=== PATIENT | female | born 1965 ===

== ENCOUNTER → 2022-05-17 13:31 | Outpatient (BNVA) | payer OTHER, SELFPAY | PROVIDERS: PCP Internal Medicine; Visit Provider Psychiatry & Neurology Neurology | DX: R20.0 Anesthesia of skin (principal) ==

== ENCOUNTER 2022-05-31 18:58 | Outpatient (REF) | payer OTHER, SELFPAY ==
--- NOTE | ~2022-05-31 | MR_ITS ---
EXAMINATION: MR FEMUR WITHOUT CONTRAST, LEFT CLINICAL INFORMATION: Left thigh pain, burning, numbness, lump/mass. Pain and swelling. COMPARISON: None TECHNIQUE: Multisequence MR imaging of the left femur was obtained without contrast on a high field strength scanner. FINDINGS: BONE: No stress reaction, fracture, or avascular necrosis. No abnormal marrow signal. No evidence of acute osseous injury. No concerning lytic or blastic osseous lesion. MUSCLES/TENDONS: Mildly increased T2 signal adjacent to the gluteus medius and gluteus minimus tendons on the left, consistent with mild tendinosis. No measurable tendon tear or tendon retraction. SOFT TISSUES: Minimal subcutaneous/soft tissue stranding along the lateral aspect of the thigh adjacent to the fascia without associated fluid collection or seroma formation. No soft tissue mass or fluid collection. Partially visualized small left knee joint effusion and Temple's cyst. Probable uterine fibroid. The visualized intrapelvic structures are otherwise unremarkable. MR/MR femur LT wo con IMPRESSION: Minimal subcutaneous/soft tissue stranding along the lateral aspect of the thigh adjacent to the fascia without associated fluid collection or seroma formation. No soft tissue mass or fluid collection. Mild left gluteus medius and gluteus minimus tendinosis without a measurable tendon tear or tendon retraction. No stress reaction, fracture, or avascular necrosis. Partially visualized small left knee joint effusion and Temple's cyst. Probable uterine fibroid.
== END 2022-05-31 18:59 | disposition home or self-care (01) ==
LOC: HO.MRI 18:58
PROVIDERS: PCP Internal Medicine; Visit Provider Psychiatry & Neurology Neurology
DX: M79.652 Pain in left thigh (principal); R20.3 Hyperesthesia
CPT/HCPCS: 73718

== ENCOUNTER 2022-08-08 12:52 | Outpatient (REF) | payer OTHER, SELFPAY ==
--- NOTE | 2022-08-08 08:45 | EMG_ITS ---
Please see scanned EMG / Nerve Conduction Report. MTDD
== END 2022-08-08 12:53 | disposition home or self-care (01) ==
LOC: HO.NEURO 12:52
PROVIDERS: PCP Internal Medicine; Visit Provider Psychiatry & Neurology Neurology
DX: R20.0 Anesthesia of skin (principal); R20.2 Paresthesia of skin; M79.652 Pain in left thigh
CPT/HCPCS: 95885; 95909

== ENCOUNTER → 2022-08-29 08:41 | Outpatient (BNVA) | payer OTHER, SELFPAY | PROVIDERS: PCP Internal Medicine; Visit Provider Psychiatry & Neurology Neurology | DX: M79.652 Pain in left thigh (principal); R20.0 Anesthesia of skin; R20.2 Paresthesia of skin ==

== ENCOUNTER → 2022-09-24 08:09 | Outpatient (BNVA) | payer OTHER, SELFPAY | PROVIDERS: PCP Internal Medicine; Visit Provider Internal Medicine ==

== ENCOUNTER 2022-10-09 08:30 | Outpatient (REF) | payer OTHER, SELFPAY ==
--- NOTE | ~2022-10-09 | US_ITS ---
EXAMINATION: US VENOUS BILATERAL LOWER EXTREMITIES (REFLUX EXAM) CLINICAL INDICATION: Thigh pain COMPARISON: None TECHNIQUE: Color flow triplex imaging and compression Doppler was performed to evaluate both the deep and the superficial systems bilaterally. To evaluate the superficial system, the examination was performed in the upright position. Color-flow Doppler ultrasound and compression ultrasound were utilized. In addition, maneuvers were utilized to demonstrate reflux. FINDINGS: 1. DEEP VENOUS ULTRASOUND OF THE RIGHT LOWER EXTREMITY: Respiratory variation, normal compression and augmented flow are noted in the right common femoral vein as well as the right popliteal vein. There is no evidence of deep venous thrombosis at these locations. There is 0.7 cm of reflux in the popliteal vein. There is no evidence of a Temple's cyst. 2. SUPERFICIAL ULTRASOUND WITH DOPPLER OF RIGHT LOWER EXTREMITY: The right great saphenous vein at the saphenofemoral junction measures 6 mm, at the proximal thigh 8 mm, at the mid thigh 4 mm, above the knee 4 mm, at the knee 3 mm, [id number] 2 mm, midcalf 2 mm and at the ankle measures 2 mm. There is no reflux demonstrated in the right great saphenous vein. Duplicated Right Great Saphenous Vein: There is an accessory medial saphenous measuring 3 mm and lateral saphenous measuring 5 mm which do not reflux. The right small saphenous vein measures 4 mm and shows no reflux. Accessory Vein of Giacomini: None Incompetent Perforators: None Varices Present: A 3 mm mid calf varix is present. 3. DEEP VENOUS ULTRASOUND OF THE LEFT LOWER EXTREMITY: Respiratory variation, normal compression and augmented flow are noted in the left common femoral vein as well as the left popliteal vein and there is no evidence of deep venous thrombosis at these locations. There is 0.7 cm seconds of reflux in the left popliteal vein but not the common femoral vein. There is a 6.0 x 1.5 x 5.1 cm Temple's cyst present.. 4. SUPERFICIAL ULTRASOUND WITH DOPPLER OF LEFT LOWER EXTREMITY: Left great saphenous vein at the saphenofemoral junction measures 7 mm, at the proximal thigh 8 mm, at the mid thigh 4 mm, above the knee 5 mm, at the knee 3 mm, iugry-upb-egom 2 mm, midcalf 2 mm and at the ankle measures 2 mm. There is no reflux demonstrated in the left great saphenous vein. Duplicated Left Great Saphenous Vein: There is a 3 mm accessory medial saphenous vein along with a 4 mm accessory lateral saphenous vein. These do not reflux. The left small saphenous vein measures 3 mm and shows no reflux. Accessory Vein of Giacomini: None Incompetent Perforators: None. Varices Present: None US/US venous duplex LE BI IMPRESSION: 1. Superficial venous systems show no evidence of reflux. 2. Reflux present in the deep system only in the left popliteal for 0.7 seconds.
== END 2022-10-09 08:31 | disposition home or self-care (01) ==
LOC: HO.US 08:30
PROVIDERS: PCP Internal Medicine; Visit Provider Internal Medicine
DX: M79.652 Pain in left thigh (principal)
CPT/HCPCS: 93970

== ENCOUNTER 2022-11-02 09:15 | Outpatient (AMB) | payer OTHER, SELFPAY ==
--- NOTE | 2022-11-02 09:19 | MHC.OFFVIS ---
Intake Vital Signs 11/02/22 09:20 Height 5 ft 1 in Weight 266 lb BMI 50.3 BP 139/78 Blood Pressure Location Lt brachial Position Sitting Respiration 14 Pulse 86 Pulse Source Pulse Oximeter Pulse Oximetry (%) 97 Oxygen Delivery Method Room Air Intake Visit Reasons: FOLLOW UP/ULTRASOUND RESULTS Allergies No Known Allergies Allergy (Verified 11/02/22 09:22) Medication List - Last Reconciled 11/02/22 by Ruby Prince LPN albuterol sulfate 90 mcg/actuation 2 puffs inhalation Q2-4H PRN fexofenadine (Emma Allergy) 60 mg PO BID gabapentin 100 mg PO TID losartan 25 mg PO DAILY mometasone-formoterol 200-5 mcg/actuation (Dulera) 2 puffs inhalation BID omalizumab (Xolair) 0 mg subcut pantoprazole 20 mg PO DAILY rosuvastatin (Crestor) 20 mg PO DAILY tirzepatide (Mounjaro) mg subcut HPI FOLLOW UP/ULTRASOUND RESULTS HPI Details 57-year-old female presenting today for a follow-up discussion of US results. The patient reports pain and muscle tightness in the left lateral thigh. Her pain is intermittent in nature and worsens with prolonged standing positions. This is associated with swelling in her ankles, especially the left. She recently bought compression stockings. [facility] Medical History (Updated 11/02/22 @ 10:27 by Armand Givens MD) Meralgia paresthetica of left side Numbness and tingling of left leg Tendinosis Surgical History History of carpal tunnel repair Hx of cholecystectomy Family History Father Diabetes Heart disease Arthritis Kidney disease Mother Diabetes Cirrhosis Sister Diabetes Heart disease HTN (hypertension) Social History Alcohol intake: current Patient Tobacco Use Status: Never used Tobacco Review of Systems Const All systems reviewed & are unremarkable except as noted in HPI and below Physical Exam Vital Signs: Last Vital Signs Pulse 86 11/02/22 09:20 Resp 14 11/02/22 09:20 BP 139/78 11/02/22 09:20 Pulse Ox 97 11/02/22 09:20 Oxygen Delivery Method Room Air 11/02/22 09:20 BMI result Body Mass Index 50.3 General: Appears afebrile. Alert and oriented. Mood and affect appropriate. Follows and participates in conversation appropriately. Respiratory effort is unlabored. Able to transition from sit to stand unassisted. Ambulates with bilaterally normal heel strike and toe off. Point tenderness to palpation in the left lateral distal thigh. No tenderness to palpation posterior to the left knee. No palpable Temple cyst. Results Reviewed Results Reviewed: 10/09/22: US VENOUS BILATERAL LOWER EXTREMITIES (REFLUX EXAM) FINDINGS: 1. DEEP VENOUS ULTRASOUND OF THE RIGHT LOWER EXTREMITY: Respiratory variation, normal compression and augmented flow are noted in the right common femoral vein as well as the right popliteal vein. There is no evidence of deep venous thrombosis at these locations. There is 0.7 cm of reflux in the popliteal vein. There is no evidence of a Temple's cyst. 2. SUPERFICIAL ULTRASOUND WITH DOPPLER OF RIGHT LOWER EXTREMITY: The right great saphenous vein at the saphenofemoral junction measures 6 mm, at the proximal thigh 8 mm, at the mid thigh 4 mm, above the knee 4 mm, at the knee 3 mm, lcwum-xzo-wfzm 2 mm, midcalf 2 mm and at the ankle measures 2 mm. There is no reflux demonstrated in the right great saphenous vein. Duplicated Right Great Saphenous Vein: There is an accessory medial saphenous measuring 3 mm and lateral saphenous measuring 5 mm which do not reflux. The right small saphenous vein measures 4 mm and shows no reflux. Accessory Vein of Giacomini: None Incompetent Perforators: None Varices Present: A 3 mm mid calf varix is present. 3. DEEP VENOUS ULTRASOUND OF THE LEFT LOWER EXTREMITY: Respiratory variation, normal compression and augmented flow are noted in the left common femoral vein as well as the left popliteal vein and there is no evidence of deep venous thrombosis at these locations. There is 0.7 cm seconds of reflux in the left popliteal vein but not the common femoral vein. There is a 6.0 x 1.5 x 5.1 cm Temple's cyst present.. 4. SUPERFICIAL ULTRASOUND WITH DOPPLER OF LEFT LOWER EXTREMITY: Left great saphenous vein at the saphenofemoral junction measures 7 mm, at the proximal thigh 8 mm, at the mid thigh 4 mm, above the knee 5 mm, at the knee 3 mm, cldyr-wol-bkzo 2 mm, midcalf 2 mm and at the ankle measures 2 mm. There is no reflux demonstrated in the left great saphenous vein. Duplicated Left Great Saphenous Vein: There is a 3 mm accessory medial saphenous vein along with a 4 mm accessory lateral saphenous vein. These do not reflux. The left small saphenous vein measures 3 mm and shows no reflux. Accessory Vein of Giacomini: None Incompetent Perforators: None. Varices Present: None IMPRESSION: 1. Superficial venous systems show no evidence of reflux. 2. Reflux present in the deep system only in the left popliteal for 0.7 seconds. Assessment & Plan Assessment & Plan (1) Tendinosis: Code(s): M67.80 - Other specified disorders of synovium and tendon, unspecified site (2) Left thigh pain: Code(s): M79.652 - Pain in left thigh (3) Venous reflux: Code(s): I87.2 - Venous insufficiency (chronic) (peripheral) Plan 1. Will schedule her for left lateral thigh trigger point/ local anesthetic/ hydro dissection of the facial planes. Discussed the risks and benefits of the procedure with the patient in detail. All questions were answered. The patient is on board with the plan. 2. For the time being, I encouraged her to continue using compression stockings. 3. If the diagnostic injection is not helpful, we'll consider referral to vascular surgery for possible RFA therapy of the deep left popliteal vein. 4. The patient will follow up on 11/12/22. Justification for interventional therapy: ? Patient with average pain > 6/10. ? Patient has exhausted conservative therapy. Scribed for Dr. Givens by Christo Ibrahim, medical assistant cardiology, on 11/02/2022. I, Dr. Givens, have personally reviewed and agree with the information entered by the scribe. Coding Level of Care Code Est Pt Level 4 (87853) Diagnoses Tendinosis M67.80 Left thigh pain M79.652 Venous reflux I87.2
[2022-11-02 09:20] VITALS: BP 139/78; PULSE 86; RESP 14; O2SAT 97; BMI 50.3
== END 2022-11-02 09:48 | disposition home or self-care (01) ==
PROVIDERS: PCP Internal Medicine; Visit Provider Internal Medicine
DX: M67.80 Other specified disorders of synovium and tendon, unspecified site (principal); M79.652 Pain in left thigh; I87.2 Venous insufficiency (chronic) (peripheral)
CPT/HCPCS: 99214

== ENCOUNTER → 2022-11-02 09:15 | Outpatient (BNVA) | payer OTHER, SELFPAY | PROVIDERS: PCP Internal Medicine; Visit Provider Internal Medicine ==

== ENCOUNTER 2022-11-12 11:20 | Outpatient (AMB) | payer OTHER, SELFPAY ==
--- NOTE | 2022-11-12 11:35 | MHC.OFFVIS ---
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 Patient presents for scheduled procedure. Denies any recent cough, cold, infection, fever or other significant changes in medical history since last office visit. [facility] Medical History (Updated 11/15/22 @ 12:40 by Armand Givens MD) Meralgia paresthetica of left side Numbness and tingling of left leg Tendinosis Surgical History History of carpal tunnel repair Hx of cholecystectomy Family History Father Diabetes Heart disease Arthritis Kidney disease Mother Diabetes Cirrhosis Sister Diabetes Heart disease HTN (hypertension) Social History Alcohol intake: current Patient Tobacco Use Status: Never used Tobacco Review of Systems Const All systems reviewed & are unremarkable except as noted in HPI and below Physical Exam Vital Signs: Last Vital Signs Pulse 77 11/12/22 12:02 BP 160/80 H 11/12/22 12:02 Pulse Ox 97 11/12/22 12:02 Oxygen Delivery Method Room Air 11/12/22 12:02 BMI result Body Mass Index 50.3 General: Appears afebrile. Alert and oriented. Mood and affect appropriate. Follows and participates in conversation appropriately. Respiratory effort is unlabored. Able to transition from sit to stand unassisted. Ambulates with bilaterally normal heel strike and toe off. Office Procedures Injection Trigger Point Multi Pre-procedure diagnosis: Myofascial pain Post-procedure diagnosis: Myofascial pain Site and number of trigger points: Left vastus lateralis, intermedius. Solution: Total volume administered 20 ml (10 ml lidocaine 1% + 10 ml bupivacaine 0.25%). The procedure, its benefits, and its risks were explained to the patient and all questions were answered. Prior to the start of the procedure, a ?time out? was performed to confirm correct patient, procedure, and laterality. Trigger points were identified by manual palpation and marked. The skin was cleaned with Chloraprep. A 21 gauge 80 mm echo stim needle was used. The needle was advanced in an in plane approach the fascia between the vastus lateralis and intermedius muscles. The fascial layer was hydro dissected with the local anesthetic solution mentioned above. The patient tolerated the procedure well, without complication. The patient denied any numbness, paresthesias, or weakness. Post-procedure vitals were recorded as part of the nursing discharge note in electronic medical record. Following a period of observation, the patient was discharged in stable condition with written discharge instructions. Trigger Point Multiple: 17924- Trigger point injection =/>3 Results Reviewed Results Reviewed: No imaging is available for review. Assessment & Plan Assessment & Plan (1) Numbness and tingling of left leg: Code(s): R20.0 - Anesthesia of skin; R20.2 - Paresthesia of skin (2) Myofascial pain: Code(s): M79.18 - Myalgia, other site Plan Patient is status post trigger point injections. Patient tolerated procedure well and was discharged home in stable condition with discharge instructions. All questions were answered. We will follow-up in two weeks via telephone or in clinic to assess response to therapy. A follow-up appointment was made during today's visit. Depending on response to this injection, we may repeat this procedure as needed. If there is no response to this intervention, we will consider a spinal origin of her apparently neurogenic claudication related symptoms of leg numbness with activity that resolves with rest. Scribed for Dr. Givens by Christo Ibrahim, medical customer service representative, on 11/12/2022. I, Dr. Givens, have personally reviewed and agree with the information entered by the scribe. Coding Level of Care Code Est Pt Level 3 (31123) Diagnoses Numbness and tingling of left leg R20.0; R20.2 Myofascial pain M79.18 CPT Codes Details - Trigger Point Multiple: 12755- Trigger point injection =/>3 ([id number])
[2022-11-12 12:02] VITALS: BP 160/80; PULSE 77; O2SAT 97; BMI 50.3
== END 2022-11-12 12:00 | disposition home or self-care (01) ==
PROVIDERS: PCP Internal Medicine; Visit Provider Internal Medicine
DX: M79.18 Myalgia, other site (principal)
CPT/HCPCS: 20553

== ENCOUNTER → 2022-11-12 11:20 | Outpatient (BNVA) | payer OTHER, SELFPAY | PROVIDERS: PCP Internal Medicine; Visit Provider Internal Medicine | DX: M79.18 Myalgia, other site (principal); G57.12 Meralgia paresthetica, left lower limb; R20.0 Anesthesia of skin; R20.2 Paresthesia of skin | CPT/HCPCS: 20553 ==

== ENCOUNTER 2022-12-13 10:36 | Outpatient (AMB) | payer OTHER, SELFPAY ==
[2022-12-13 10:44] VITALS: BP 128/82; PULSE 88; O2SAT 95; BMI 49.3
--- NOTE | 2022-12-13 10:44 | A.OFFVIS_ITS ---
Intake Vital Signs 12/13/22 10:44 Height 5 ft 1 in Weight 261 lb 2 oz BMI 49.3 BP 128/82 Blood Pressure Location Rt brachial Position Sitting Pulse 88 Pulse Source Pulse Oximeter Pulse Oximetry (%) 95 Oxygen Delivery Method Room Air Intake Visit Reasons: 3m f/u L. 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 she was seen by at pain management- had a trigger point injection. she responded initially but now she has pain but less intense. He has ordered another MRI LS spine. EMg was c/w left meralgia paresthetica she used to take gabapentin 300mg qhs but now her pain is mostly during daytime so she stopped. she describes the pain as episodic , more when she is in a standing or sitting position for a long time. At work she has a big chair which helps . she does not get as many episodes. she has episodes everyday and resting or changing position helps. she gained 25-30 lbs and works at a desk all day.SHe has sleep apnea- following up with - waiting for CPAP. [facility] Medical History Meralgia paresthetica of left side Numbness and tingling of left leg Tendinosis Surgical History History of carpal tunnel repair Hx of cholecystectomy Family History Father Diabetes Heart disease Arthritis Kidney disease Mother Diabetes Cirrhosis Sister Diabetes Heart disease HTN (hypertension) Social History Alcohol intake: current Alcohol intake frequency: holidays/special occasions only Patient Tobacco Use Status: Never used Tobacco Use of substances other than those prescribed or required for medical reasons: No Physical Exam Vital Signs: Last Vital Signs Pulse 88 12/13/22 10:44 BP 128/82 12/13/22 10:44 Pulse Ox 95 12/13/22 10:44 Oxygen Delivery Method Room Air 12/13/22 10:44 BMI result Body Mass Index 49.3 Const General: cooperative Nutritional Appearance: obese morbidly obese Orientation/consciousness: patient oriented x3 Limitations: physical limitations HEENT Head: Yes normal to inspection and Yes normocephalic Eyes Pupils: Equal, round and reactive pupils present Neuro General: patient oriented x3, tone normal and moves all extremities Cranial nerves: Yes Facial sensation intact/muscles of mastication intact, Yes Equal, round and reactive pupils present, Yes Bilaterally intact EOM present, Yes Nystagmus not present, Yes Normal facial strength present, Yes Midline tongue present and Yes Symmetric palate elevation present Cognition (Neuro): normal cognition Gait exam (Neuro): Normal gait present Motor exam (neuro): 5/5 motor strength present throughout Deep tendon reflexes (DTR's): Right triceps reflex intensity grade: 1+, Left triceps reflex intensity grade: 1+, Rt Biceps (C5, C6): 1+, Left biceps reflex intensity grade: 1+, Right brachioradialis reflex intensity grade: 1+, Left brachioradialis reflex intensity grade: 1+, Right patellar reflex intensity grade: 1+ and Left patellar reflex intensity grade: 1+ Coordination: [id number] test normal Extrem Other: firm tender nodule in left lateral mid thigh - tender to touch Assessment & Plan Assessment & Plan (1) Left thigh pain: Code(s): M79.652 - Pain in left thigh (2) Meralgia paresthetica of left side: Code(s): G57.12 - Meralgia paresthetica, left lower limb Plan F/u Dr Givens Continue gabapentin 300mg as needed Coding Level of Care Code Est Pt Level 4 (88056) Diagnoses Left thigh pain M79.652 Meralgia paresthetica of left side G57.12
== END 2022-12-13 11:04 | disposition home or self-care (01) ==
PROVIDERS: Visit Provider Psychiatry & Neurology Neurology
DX: M79.652 Pain in left thigh (principal); G57.12 Meralgia paresthetica, left lower limb
CPT/HCPCS: 99214

== ENCOUNTER → 2022-12-13 10:36 | Outpatient (BNVA) | payer OTHER, SELFPAY | PROVIDERS: Visit Provider Psychiatry & Neurology Neurology | DX: M79.652 Pain in left thigh (principal); R20.0 Anesthesia of skin; R20.2 Paresthesia of skin; G57.12 Meralgia paresthetica, left lower limb; M67.80 Other specified disorders of synovium and tendon, unspecified site ==

== ENCOUNTER 2023-01-07 09:34 | Outpatient (AMB) | payer OTHER, SELFPAY ==
[2023-01-07 09:44] VITALS: BP 129/79; PULSE 87; RESP 14; O2SAT 96; BMI 49.9
--- NOTE | 2023-01-07 09:44 | A.OFFVIS_ITS ---
Intake Vital Signs 01/07/23 09:44 Height 5 ft 1 in Weight 264 lb BMI 49.9 BP 129/79 Blood Pressure Location Lt brachial Position Sitting Respiration 14 Pulse 87 Pulse Source Pulse Oximeter Pulse Oximetry (%) 96 Oxygen Delivery Method Room Air Intake Visit Reasons: Increasing Pain s/p left TPI in October Allergies No Known Allergies Allergy (Verified 01/07/23 09:45) Medication List - Last Reconciled 01/07/23 by Ruby Prince LPN albuterol sulfate 90 mcg/actuation 2 puffs inhalation Q2-4H PRN atorvastatin 20 mg PO DAILY empagliflozin (Jardiance) 10 mg PO DAILY fexofenadine (Emma Allergy) 60 mg PO BID gabapentin 100 mg PO TID PRN insulin glargine U-300 conc (Toujeo SoloStar U-300 Insulin) units subcut losartan 25 mg PO DAILY mometasone-formoterol 200-5 mcg/actuation (Dulera) 2 puffs inhalation DAILY omalizumab (Xolair) 0 mg subcut pantoprazole 40 mg PO DAILY rosuvastatin (Crestor) 20 mg PO DAILY semaglutide (Ozempic) mg subcut HPI Increasing Pain s/p left TPI in October HPI Details 57-year-old female who presents today to the office for a follow-up of increasing pain status post left thigh TPI. The patient reports 90% relief following the procedure for three weeks. She denies any numbness or paresthesia. She states that her pain started coming back after three weeks, but it has improved compared to pain present before procedure. She is interested in repeating the injection. Past procedure: 11/12/22: Trigger point injections: 90% relief for 3 weeks. [facility] Medical History Meralgia paresthetica of left side Numbness and tingling of left leg Tendinosis Surgical History History of carpal tunnel repair Hx of cholecystectomy Family History Father Diabetes Heart disease Arthritis Kidney disease Mother Diabetes Cirrhosis Sister Diabetes Heart disease HTN (hypertension) Social History Alcohol intake: current Alcohol intake frequency: holidays/special occasions only Patient Tobacco Use Status: Never used Tobacco Review of Systems Const All systems reviewed & are unremarkable except as noted in HPI and below Physical Exam Vital Signs: Last Vital Signs Pulse 87 01/07/23 09:44 Resp 14 01/07/23 09:44 BP 129/79 01/07/23 09:44 Pulse Ox 96 01/07/23 09:44 Oxygen Delivery Method Room Air 01/07/23 09:44 BMI result Body Mass Index 49.9 General: Appears afebrile. Alert and oriented. Mood and affect appropriate. Follows and participates in conversation appropriately. Respiratory effort is unlabored. Able to transition from sit to stand unassisted. Ambulates with bilaterally normal heel strike and toe off. Results Reviewed Results Reviewed: No imaging is available for review. Assessment & Plan Assessment & Plan (1) Myofascial pain: Code(s): M79.18 - Myalgia, other site (2) Tendinosis: Code(s): M67.80 - Other specified disorders of synovium and tendon, unspecified site (3) Left thigh pain: Code(s): M79.652 - Pain in left thigh Plan Will schedule her for left lateral thigh trigger point / hydro dissection of the facial planes once again under ultrasound guidance. This time we will plan on using low-dose of corticosteroid. Discussed the risks and benefits of the procedure with the patient in detail. All questions were answered. The patient is on board with the plan. Justification for interventional therapy: ? Patient with average pain > 6/10 ? Patient has exhausted conservative therapy ? Diagnostic injection provided 90% relief for [address] Givens by Christo Ibrahim, certified court/medical interpreter, on 01/07/2023. I, Dr. Givens, have personally reviewed and agree with the information entered by the scribe. Coding Level of Care Code Est Pt Level 3 (55605) Diagnoses Myofascial pain M79.18 Tendinosis M67.80 Left thigh pain M79.652
== END 2023-01-07 09:57 | disposition home or self-care (01) ==
PROVIDERS: PCP Internal Medicine; Visit Provider Internal Medicine
DX: M79.652 Pain in left thigh (principal); M79.18 Myalgia, other site; M67.80 Other specified disorders of synovium and tendon, unspecified site
CPT/HCPCS: 99214

== ENCOUNTER → 2023-01-07 09:34 | Outpatient (BNVA) | payer OTHER, SELFPAY | PROVIDERS: PCP Internal Medicine; Visit Provider Internal Medicine ==

== ENCOUNTER 2023-01-28 15:51 | Outpatient (AMB) | payer OTHER, SELFPAY ==
[2023-01-28 15:56] VITALS: BP 143/74; PULSE 85; RESP 14; O2SAT 97; BMI 49.7
--- NOTE | 2023-01-28 15:56 | MHC.OFFVIS ---
Intake Vital Signs 01/28/23 15:56 Height 5 ft 1 in Weight 263 lb BMI 49.7 BP 143/74 H Blood Pressure Location Lt radial Position Sitting Respiration 14 Pulse 85 Pulse Source Pulse Oximeter Pulse Oximetry (%) 97 Oxygen Delivery Method Room Air Intake Visit Reasons: Left lat thigh TPI/hydrodissection facial planes Allergies No Known Allergies Allergy (Verified 01/28/23 15:58) Medication List - Last Reconciled 01/28/23 by Ruby Prince LPN albuterol sulfate 90 mcg/actuation 2 puffs inhalation Q2-4H PRN atorvastatin 20 mg PO DAILY empagliflozin (Jardiance) 10 mg PO DAILY fexofenadine (Emma Allergy) 60 mg PO BID gabapentin 100 mg PO TID PRN insulin glargine U-300 conc (Toujeo SoloStar U-300 Insulin) units subcut losartan 25 mg PO DAILY mometasone-formoterol 200-5 mcg/actuation (Dulera) 2 puffs inhalation DAILY omalizumab (Xolair) 0 mg subcut pantoprazole 40 mg PO DAILY rosuvastatin (Crestor) 20 mg PO DAILY semaglutide (Ozempic) mg subcut HPI Left lat thigh TPI/hydrodissection facial planes HPI Details 57-year-old female who presents today to the office for a left lateral thigh TPI/hydro-dissection facial planes. Denies any recent cough, cold, infection, fever or other significant changes in medical history since last office visit. Past procedure: 11/12/22: Trigger point injections: 90% relief for 3 weeks. [facility] Medical History Meralgia paresthetica of left side Numbness and tingling of left leg Tendinosis Surgical History History of carpal tunnel repair Hx of cholecystectomy Family History Father Diabetes Heart disease Arthritis Kidney disease Mother Diabetes Cirrhosis Sister Diabetes Heart disease HTN (hypertension) Social History Alcohol intake: current Alcohol intake frequency: holidays/special occasions only Patient Tobacco Use Status: Never used Tobacco Review of Systems Const All systems reviewed & are unremarkable except as noted in HPI and below Physical Exam Vital Signs: Last Vital Signs Pulse 85 01/28/23 15:56 Resp 14 01/28/23 15:56 BP 143/74 H 01/28/23 15:56 Pulse Ox 97 01/28/23 15:56 Oxygen Delivery Method Room Air 01/28/23 15:56 BMI result Body Mass Index 49.7 General: Appears afebrile. Alert and oriented. Mood and affect appropriate. Follows and participates in conversation appropriately. Respiratory effort is unlabored. Able to transition from sit to stand unassisted. Ambulates with bilaterally normal heel strike and toe off. Office Procedures Injection Trigger Point Multi Pre-procedure diagnosis: Myofascial pain Post-procedure diagnosis: Myofascial pain Site and number of trigger points: Left vastus lateralis, intermedius. Solution: Total volume administered 20 ml (10 ml lidocaine 1% + 10 ml bupivacaine 0.25%). The procedure, its benefits, and its risks were explained to the patient and all questions were answered. Prior to the start of the procedure, a ?time out? was performed to confirm correct patient, procedure, and laterality. Trigger points were identified by manual palpation and marked. The skin was cleaned with Chloraprep. A 21 gauge 80 mm echo stim needle was used. The needle was advanced in an in plane approach the fascia between the vastus lateralis and intermedius muscles. A hyperechoic structure was noted that was tender upon pressure application with the probe. The aforementioned mix was infiltrated around this hyperechoic, tender focus. The fascial layer was then hydro dissected with the local anesthetic solution mentioned above. The patient tolerated the procedure well, without complication. The patient denied any numbness, paresthesias, or weakness. Post-procedure vitals were recorded as part of the nursing discharge note in electronic medical record. Following a period of observation, the patient was discharged in stable condition with written discharge instructions. Trigger Point Multiple: 40453- Trigger point injection =/>3 Results Reviewed Results Reviewed: No imaging is available for review. Assessment & Plan Assessment & Plan (1) Numbness and tingling of left leg: Code(s): R20.0 - Anesthesia of skin; R20.2 - Paresthesia of skin (2) Myofascial pain: Code(s): M79.18 - Myalgia, other site Plan Patient is status post left trigger point injection. Patient tolerated procedure well and was discharged home in stable condition with discharge instructions. All questions were answered. We will follow-up in two weeks via telephone or in clinic to assess response to therapy. A follow-up appointment was made during today's visit. Scribed for Dr. Givens by hCristo Ibrahim, director of medical staff services, on 01/28/2023. I, Dr. Givens, have personally reviewed and agree with the information entered by the scribe. Coding Level of Care Code Procedure Only Diagnoses Numbness and tingling of left leg R20.0; R20.2 Myofascial pain M79.18 CPT Codes Details - Trigger Point Multiple: 03226- Trigger point injection =/>3 ([id number])
== END 2023-01-28 16:35 | disposition home or self-care (01) ==
PROVIDERS: PCP Internal Medicine; Visit Provider Internal Medicine
DX: M79.18 Myalgia, other site (principal)
CPT/HCPCS: 20553

== ENCOUNTER → 2023-01-28 15:51 | Outpatient (BNVA) | payer OTHER, SELFPAY | PROVIDERS: PCP Internal Medicine; Visit Provider Internal Medicine | DX: M79.18 Myalgia, other site (principal); R20.0 Anesthesia of skin; R20.2 Paresthesia of skin | CPT/HCPCS: 20553; J3301 ==

== ENCOUNTER 2023-09-25 08:24 | Outpatient (AMB) | payer OTHER, SELFPAY ==
[2023-09-25 08:34] VITALS: BP 130/71; PULSE 90; RESP 14; O2SAT 96; BMI 48.9
--- NOTE | 2023-09-25 08:34 | MHC.OFFVIS ---
Vital Signs 09/25/23 08:34 Height 5 ft 1 in Weight 259 lb BMI 48.9 BP 130/71 Blood Pressure Location Lt radial Position Sitting Respiration 14 Pulse 90 Pulse Source Pulse Oximeter Pulse Oximetry (%) 96 Oxygen Delivery Method Room Air Intake Visit Reasons: left leg pain Allergies No Known Allergies Allergy (Verified 09/25/23 08:35) Medication List - Last Reconciled 09/25/23 by Ruby Prince LPN albuterol sulfate 90 mcg/actuation 2 puffs inhalation Q2-4H PRN atorvastatin 20 mg PO DAILY dulaglutide (Trulicity) mg subcut empagliflozin (Jardiance) 10 mg PO DAILY fexofenadine (Emma Allergy) 60 mg PO BID gabapentin 100 mg PO TID PRN insulin glargine U-300 conc (Toujeo SoloStar U-300 Insulin) units subcut losartan 25 mg PO DAILY mometasone-formoterol 200-5 mcg/actuation (Dulera) 2 puffs inhalation DAILY omalizumab (Xolair) 0 mg subcut pantoprazole 40 mg PO DAILY rosuvastatin (Crestor) 20 mg PO DAILY HPI HPI left leg pain: Details: 58-year-old female who presents to the office for evaluation of left leg pain. She complains of having pain and muscle tightness in the left lateral thigh. She states the pain in intermittent and it will worsen with prolonged standing positions. She also noted to have swelling in the left ankle, for which she is wearing compression stockings. She previously underwent a nerve conduction study which was unremarkable. Past procedure: 01/28/23: Left lateral thigh trigger point injection/hydrodissection facial planes: 70-80% relief for several months 11/12/22: Trigger point injections: 90% relief for 3 weeks [facility] Medical History Meralgia paresthetica of left side Numbness and tingling of left leg Tendinosis Surgical History History of carpal tunnel repair Hx of cholecystectomy Family History Father Diabetes Heart disease Arthritis Kidney disease Mother Diabetes Cirrhosis Sister Diabetes Heart disease HTN (hypertension) Social History Alcohol intake: current Alcohol intake frequency: holidays/special occasions only Patient Tobacco Use Status: Never used Tobacco Review of Systems Const All systems reviewed & are unremarkable except as noted in HPI and below Physical Exam Vital Signs: Last Vital Signs Pulse 90 09/25/23 08:34 Resp 14 09/25/23 08:34 BP 130/71 09/25/23 08:34 Pulse Ox 96 09/25/23 08:34 Oxygen Delivery Method Room Air 09/25/23 08:34 BMI result Body Mass Index 48.9 General: Appears afebrile. Alert and oriented. Mood and affect appropriate. Follows and participates in conversation appropriately. Respiratory effort is unlabored. Able to transition from sit to stand unassisted. Results Reviewed Results Reviewed: 10/09/22: US VENOUS BILATERAL LOWER EXTREMITIES (REFLUX EXAM) FINDINGS: 1. DEEP VENOUS ULTRASOUND OF THE RIGHT LOWER EXTREMITY: Respiratory variation, normal compression and augmented flow are noted in the right common femoral vein as well as the right popliteal vein. There is no evidence of deep venous thrombosis at these locations. There is 0.7 cm of reflux in the popliteal vein. There is no evidence of a Temple's cyst. 2. SUPERFICIAL ULTRASOUND WITH DOPPLER OF RIGHT LOWER EXTREMITY: The right great saphenous vein at the saphenofemoral junction measures 6 mm, at the proximal thigh 8 mm, at the mid thigh 4 mm, above the knee 4 mm, at the knee 3 mm, [id number] 2 mm, midcalf 2 mm and at the ankle measures 2 mm. There is no reflux demonstrated in the right great saphenous vein. Duplicated Right Great Saphenous Vein: There is an accessory medial saphenous measuring 3 mm and lateral saphenous measuring 5 mm which do not reflux. The right small saphenous vein measures 4 mm and shows no reflux. Accessory Vein of Giacomini: None Incompetent Perforators: None Varices Present: A 3 mm mid calf varix is present. 3. DEEP VENOUS ULTRASOUND OF THE LEFT LOWER EXTREMITY: Respiratory variation, normal compression and augmented flow are noted in the left common femoral vein as well as the left popliteal vein and there is no evidence of deep venous thrombosis at these locations. There is 0.7 cm seconds of reflux in the left popliteal vein but not the common femoral vein. There is a 6.0 x 1.5 x 5.1 cm Temple's cyst present.. 4. SUPERFICIAL ULTRASOUND WITH DOPPLER OF LEFT LOWER EXTREMITY: Left great saphenous vein at the saphenofemoral junction measures 7 mm, at the proximal thigh 8 mm, at the mid thigh 4 mm, above the knee 5 mm, at the knee 3 mm, pqktb-djv-mkbp 2 mm, midcalf 2 mm and at the ankle measures 2 mm. There is no reflux demonstrated in the left great saphenous vein. Duplicated Left Great Saphenous Vein: There is a 3 mm accessory medial saphenous vein along with a 4 mm accessory lateral saphenous vein. These do not reflux. The left small saphenous vein measures 3 mm and shows no reflux. Accessory Vein of Giacomini: None Incompetent Perforators: None. Varices Present: None IMPRESSION: 1. Superficial venous systems show no evidence of reflux. 2. Reflux present in the deep system only in the left popliteal for 0.7 seconds. 05/31/22: MR FEMUR WITHOUT CONTRAST, LEFT FINDINGS: BONE: No stress reaction, fracture, or avascular necrosis. No abnormal marrow signal. No evidence of acute osseous injury. No concerning lytic or blastic osseous lesion. MUSCLES/TENDONS: Mildly increased T2 signal adjacent to the gluteus medius and gluteus minimus tendons on the left, consistent with mild tendinosis. No measurable tendon tear or tendon retraction. SOFT TISSUES: Minimal subcutaneous/soft tissue stranding along the lateral aspect of the thigh adjacent to the fascia without associated fluid collection or seroma formation. No soft tissue mass or fluid collection. Partially visualized small left knee joint effusion and Temple's cyst. Probable uterine fibroid. The visualized intrapelvic structures are otherwise unremarkable. IMPRESSION: Minimal subcutaneous/soft tissue stranding along the lateral aspect of the thigh adjacent to the fascia without associated fluid collection or seroma formation. No soft tissue mass or fluid collection. Mild left gluteus medius and gluteus minimus tendinosis without a measurable tendon tear or tendon retraction. No stress reaction, fracture, or avascular necrosis. Partially visualized small left knee joint effusion and Temple's cyst. Probable uterine fibroid. Lumbar spine MRI for 08/02/2020 noted left L2 nerve root compression from a paracentral disc herniation. Assessment & Plan Assessment & Plan (1) Lumbar radiculitis: Code(s): M54.16 - Radiculopathy, lumbar region Category: Medical Plan Persistent left thigh pain and numbness. Differential including local muscular process versus lumbar radiculitis. She has had a good therapeutic response to local muscular injections but problem seems to be persistent. We discussed potentially going after a lumbar source and see if that provides more longer lasting relief. 1. Referral for physical therapy for lumbar radiculitis symptoms, possibly secondary to L2 nerve root irritation. 2. We will schedule for a diagnostic left L2 transforaminal epidural steroid injection with local anesthetic only. Discussed the risks and benefits of the procedure with the patient in detail. All questions were answered. The patient is on board with the plan. Justification for interventional therapy: ? Patient with average pain > 6/10 ? Patient has exhausted conservative therapy ? Retrialing physical therapy for lumbar radicular source Scribed for Dr. Givens by Beau Maurer, medical supervisor, on 09/25/2023. I, Dr. Givens, have personally reviewed and agree with the information entered by the scribe. Orders: Orders PT Evaluation and Treatment Today M54.16 - Radiculopathy, lumbar region Coding Level of Care Code Est Pt Level 4 (29007) Diagnoses Lumbar radiculitis M54.16
== END 2023-09-25 08:53 | disposition home or self-care (01) ==
PROVIDERS: PCP Internal Medicine; Visit Provider Internal Medicine
DX: M54.16 Radiculopathy, lumbar region (principal)
CPT/HCPCS: 99214

== ENCOUNTER → 2023-09-25 08:24 | Outpatient (BNVA) | payer OTHER, SELFPAY | PROVIDERS: PCP Internal Medicine; Visit Provider Internal Medicine ==

== ENCOUNTER 2023-10-10 06:14 | Outpatient (REF) | payer OTHER, SELFPAY ==
--- NOTE | ~2023-10-10 | FL_ITS ---
EXAMINATION: XR FLUOROSCOPY WITH IMAGES CLINICAL INFORMATION: Lumbar radiculopathy. COMPARISON: None available. TECHNIQUE: Fluoroscopy Supervised By: Dr. Givens. Fluoroscopy Time: 0.2 min. Cumulative Dose: 8.23 mGy. DAP: 0.891 Gycm2. Images: 4. FINDINGS: Intraoperative fluoroscopy and spot films were performed during a procedure in the OR. Foraminal approach needles are present on what is labeled the left side of a lumbar vertebral body. Injected contrast is in the epidural space. Precise levels can not be ascertained secondary to marked coning of the images with lack of appropriate landmarks. Please correlate with Dr. Givens' report for complete details. FL/FL guidance in treatment room IMPRESSION: Intraoperative fluoroscopy and spot films were obtained. Please see Dr. Givens' report for complete details.
== END 2023-10-10 06:15 | disposition home or self-care (01) ==
LOC: CF 06:14
PROVIDERS: Visit Provider Internal Medicine
DX: M54.16 Radiculopathy, lumbar region (principal)
CPT/HCPCS: 64483; Q9967

== ENCOUNTER 2023-10-10 13:41 | Outpatient (AMB) | payer OTHER, SELFPAY ==
[2023-10-10 14:13] VITALS: BP 145/71; PULSE 86; RESP 14; O2SAT 95
--- NOTE | 2023-10-10 14:13 | A.OFFVIS_ITS ---
Vital Signs 10/10/23 14:13 10/10/23 14:14 BP 145/71 H 138/87 Blood Pressure Location Rt brachial Rt brachial Position Sitting Sitting Respiration 14 14 Pulse 86 79 Pulse Source Pulse Oximeter Pulse Oximeter Pulse Oximetry (%) 95 96 Oxygen Delivery Method Room Air Room Air Intake Visit Reasons: Left Dx L2 TFESI Allergies No Known Allergies Allergy (Verified 09/25/23 08:35) HPI HPI Left Dx L2 TFESI: Details: Patient presents for scheduled procedure. Denies any recent cough, cold, infection, fever or other significant changes in medical history since last office visit. [facility] Medical History Meralgia paresthetica of left side Numbness and tingling of left leg Tendinosis Surgical History History of carpal tunnel repair Hx of cholecystectomy Family History Father Diabetes Heart disease Arthritis Kidney disease Mother Diabetes Cirrhosis Sister Diabetes Heart disease HTN (hypertension) Social History Alcohol intake: current Alcohol intake frequency: holidays/special occasions only Patient Tobacco Use Status: Never used Tobacco Physical Exam Vital Signs: Last Vital Signs Pulse 79 10/10/23 14:14 Resp 14 10/10/23 14:14 BP 138/87 10/10/23 14:14 Pulse Ox 96 10/10/23 14:14 Oxygen Delivery Method Room Air 10/10/23 14:14 Office Procedures Details: Selective nerve root block, Left L2 After obtaining written consent, pre-procedure blood pressure and heart rate were stable and recorded in the nursing record. The patient was placed in the prone position on the fluoroscopy table. The lumbosacral area was prepped with chloraprep, allowed to dry and draped in sterile fashion. Using fluoroscopy, the skin overlying our target was a nesthetized with 0.5% lidocaine. A 22 gauge 3.5 inch spinal needle was advanced to the safe triangle in the upper pole of the left L2 foramen. No paresthesias were elicited with needle placement and aspiration was negative for blood and CSF. Correct needle position was confirmed with approximately 1 ml contrast dye (Omnipaque 180 mg/ml) injected under real-time fluoroscopy. No evidence of vascular or intrathecal uptake was seen and there was both epidural and peripheral spread of the contrast agent. 1 ml containing 1% lidocaine was slowly injected. The needle was flushed and removed. The skin was cleansed and a sterile bandages were applied. The patient tolerated the procedure well and no complications were encountered. Following the procedure the patient's vital signs were stable. The patient was discharged home in good condition with post-procedural instructions. Time Out: Immediately prior to the procedure, the following was verbally confirmed that there is a signed consent form and that the correct patient, planned procedure, site and side are consistent with documentation and that necessary equipment and/or blood products are available prior to the start of the case. Complications: none EBL: <5 cc 25757 - Lumbar/Sacral Procedure code (CPT) selection complete Assessment & Plan Assessment & Plan (1) Lumbar radiculitis: Code(s): M54.16 - Radiculopathy, lumbar region Category: Medical Plan Patient is status post diagnostic left L2 selective nerve root block. Patient tolerated procedure well and was discharged home in stable condition with discharge instructions. All questions were answered. We will follow-up via telephone or in clinic to assess response to therapy. A follow-up appointment was made during today's visit. Coding Level of Care Code Procedure Only Diagnoses Lumbar radiculitis M54.16 CPT Codes Transforaminal Epidural Steroid Inj - TESI 3: 31661 - Lumbar/Sacral ([id number])
[2023-10-10 14:14] VITALS: BP 138/87; PULSE 79; RESP 14; O2SAT 96
== END 2023-10-10 14:22 | disposition home or self-care (01) ==
LOC: HO.PMCPRC 13:41
PROVIDERS: PCP Internal Medicine; Visit Provider Internal Medicine
DX: M54.16 Radiculopathy, lumbar region (principal)
CPT/HCPCS: 64483

== ENCOUNTER 2023-10-18 10:43 | Outpatient (AMB) | payer OTHER, SELFPAY ==
--- NOTE | 2023-10-18 10:43 | MHC.OFFVIS ---
Intake Visit Reasons: s/p Dx TFESI Allergies No Known Allergies Allergy (Verified 09/25/23 08:35) HPI HPI s/p Dx TFESI: Details: 58-year-old female who presents today via tele-visit for a status post diagnostic transforaminal epidural steroid injection. The patient reports 100% relief following the procedure for a period of 1 1/2 hours. During that time, she also experienced some heaviness in her left leg, which then resolved and went away. Since the injection, her pain has returned, but not to the same extent and intensity as before. She has hip pain. She started physical therapy last week for back pain and was planning on continuing for the next three months. Past procedures 10/10/23: Selective nerve root block, Left L2: 100% relief for 1.5-2 hours. 01/28/23: Left lateral thigh trigger point injection/hydrodissection facial planes: 70-80% relief for several months 11/12/22: Trigger point injections: 90% relief for 3 weeks PFSH Medical History Meralgia paresthetica of left side Numbness and tingling of left leg Tendinosis Surgical History History of carpal tunnel repair Hx of cholecystectomy Family History Father Diabetes Heart disease Arthritis Kidney disease Mother Diabetes Cirrhosis Sister Diabetes Heart disease HTN (hypertension) Social History Alcohol intake: current Alcohol intake frequency: holidays/special occasions only Patient Tobacco Use Status: Never used Tobacco Review of Systems Const All systems reviewed & are unremarkable except as noted in HPI and below Telehealth Telehealth Telehealth Platform: Telephone Location of provider rendering services: practice address Location of patient: address on file Patient Identification confirmed using: Name, : Yes Telehealth method: voice only Patient verbally consented to treatment: Yes Patient verbally consented to billing insurance company: Yes Patient informed of any privacy concerns related to visit: Yes Minutes spent on Phone/Video with Pt.: 5 Results Reviewed Results Reviewed: No imaging is available for review. Assessment & Plan Assessment & Plan (1) Lumbar radiculitis: Code(s): M54.16 - Radiculopathy, lumbar region Category: Medical Plan Based on the response to the diagnostic injection, I feel her symptoms are likely secondary to a spinal source as opposed to a local thigh source. The patient will continue physical therapy for lumbar radicular pain for about three months. She will call us in three months if she does not get relief from PT, we can plan on repeating the left L2 TFESI with steroid for therapeutic purposes. Scribed for Dr. Givens by Christo Ibrahim, medical communication specialist, on 10/18/2023. I, Dr. Givens, have personally reviewed and agree with the information entered by the scribe. Coding Level of Care Code Tele Est Pt Level 3 (28778) Diagnoses Lumbar radiculitis M54.16
== END 2023-10-18 10:44 | disposition home or self-care (01) ==
LOC: HO.PMC 10:43
PROVIDERS: PCP Internal Medicine; Visit Provider Internal Medicine
DX: M54.16 Radiculopathy, lumbar region (principal)
CPT/HCPCS: 99213

== ENCOUNTER → 2023-10-18 10:43 | Outpatient (BNVA) | payer OTHER, SELFPAY | PROVIDERS: PCP Internal Medicine; Visit Provider Internal Medicine ==